=== PATIENT | female | born 1985 | race Asian ===

== ENCOUNTER 2016-10-22 03:54 | Inpatient (IN) | payer BC, OTHER ==
[2016-10-22] MEDS ORDERED: EPSOM SALT 454 GM TP PRN (04:30)
[2016-10-22] MEDS ORDERED: LIDOCAINE 1% 30 ML SDV SC PRN (04:30)
[2016-10-22] MEDS ORDERED: OXYTOCIN/RINGERS LACTATE 1,000 ML IV PRN (04:30)
[2016-10-22] MEDS ORDERED: TERBUTALINE SULFATE 1 MG/ML VIAL IV PRN (04:30)
[2016-10-22] MEDS ORDERED: LR 1,000 ML IV PRN (04:30)
[2016-10-22] MEDS ORDERED: MINERAL OIL 60 ML OIL TP PRN (04:30)
[2016-10-22] MEDS ORDERED: LIDOCAINE 1% 30 ML SDV ONE (04:46)
[2016-10-22] MEDS ORDERED: AMMONIA AROMATIC 1 EACH AMP IH ONE (04:46)
[2016-10-22] MEDS ORDERED: TERBUTALINE SULFATE 1 MG/ML VIAL ONE (04:46)
[2016-10-22] MEDS ORDERED: MISOPROSTOL 200 MCG TAB ONE (04:47)
[2016-10-22] MEDS ORDERED: OXYTOCIN 10 UNIT/ML VIAL ONE (04:47)
[2016-10-22 05:18] LABS: % IMMATURE GRANULYOCYTES 0.6 % (0.0-1.1); ABSOLUTE IMMATURE GRANULOCYTES 0.09 10^3/uL (0.00-0.10); ADD DIFF? NO; ADD MORPH? NO; ADD SCAN? NO; ATYPICAL LYMPHOCYTE FLAG 0 (0-99); FRAGMENT RBC FLAG 0 (0-99); HEMATOCRIT 43.1 % (38.0-47.0); HEMOGLOBIN 15.1 g/dL (12.6-16.3); LEFT SHIFT FLG 0 (0-99); LIPEMIA HEMOLYSIS FLAG 90 (0-99); MEAN CELL HEMOGLOBIN 31.5 pg (27.9-34.1); MEAN CELL VOLUME 89.8 fL (81.5-99.8); MEAN PLATELET VOLUME 9.5 fL (8.7-11.7); PLATELET CLUMPS FLAG 0 (0-99); PLATELET COUNT 264 10^3/uL (150-400); RED CELL DISTRIBUTION WIDTH 12.6 % (11.5-15.2)
[2016-10-22] MEDS ORDERED: LR 1,000 ML IV ONE (05:30)
--- NOTE | 2016-10-22 06:30 | GHP ---
[f rep st] HISTORY AND PHYSICAL DATE OF ADMISSION: 10/22/2016 HISTORY OF PRESENT ILLNESS: Patient is a 31-year-old, 1, para 0 at 40 3 /7 wks with a LMP of 01/07/2106 with an HECTOR of 10/19/2016 by 13 week ultrasound. The patient presents to Labor and Delivery from home with a fiberglass container winding operator named Cici. Cici was Doppler-ing and was concerned that the baseline was low at 110 bpm and that there were no accelerations heard. There were no specific decelerations noted. So she brought the patient into Labor and Delivery for monitoring and for delivery. The patient was found to have spontaneously ruptured at 23:30 on October 19, clear fluid noted throughout. Labor onset was greater than 24-hours after rupture of membranes. She took an ounce of Hickory Oil last night at about 9 p.m., and started paige at 0200 this morning. Cici, the fiberglass container winding operator, had checked the patient and she was found to be 6-7 cm dilated, in active labor. The patient had GBS in her urine early in and did get multiple doses of antibiotics, ampicillin. She is afebrile. Of note, the patient did transfer care from [place] in her 3rd trimester to the fiberglass container winding operator, Cici and presented at about 25 weeks. PAST OB HISTORY: Patient is primiparous, with last menstrual period 2015. Menstrual cycles are regular anywhere from 30-35 days, she bleeds x7 days. Age of menarche 11. The patient does not have a history of abnormal Pap smears. No history of STD exposure. PAST MEDICAL HISTORY: Unremarkable. PAST SURGICAL HISTORY: Unremarkable. FAMILY HISTORY: Father has type 2 diabetes. Paternal grandfather from liver disease. MEDICATIONS: vitamins, krill oil, and probiotics. ALLERGIES: No known drug allergies. LAB TESTS: The patient is O positive. Antibody screen negative, H and H, 39.4 , 13.6 initially, and then 3rd trimester 42.6, 13.8. TSH normal at 0.654. Platelets 270. Hemoglobin A1c 5.1. She declined the rest of her initial labs. GENERAL: She is a well-nourished, well-developed 31-year-old female. Alert and oriented, in moderate distress secondary to painful contractions. ABDOMEN: Soft, gravid and nontender. PELVIC EXAM: 7-8 cm dilated and 90% effaced, +1 station. heart tones are category 1 with a baseline 110 beats per minute , positive accels, moderate variability, there are at times minimal variability , no decels. ASSESSMENT: The patient is a 31-year-old, 1, para 0 at 40 and 3/7 weeks by 13-week ultrasound, who presents with premature ROM and onset of labor 24-hours after with GBS in the urine, adequately treated with ampicillin. Patient presents in active labor with concerns by the fiberglass container winding operator, Cici, of minimal variability and low baseline. PLAN: 1. Admit to Labor and Delivery for expectant management. 2. We will get initial labs, patient consented. 3. Will place an IV and run bolus of fluids. /[id number]/MODL MTDD
[2016-10-22] MEDS: AMPICILLIN SODIUM 1 GM in NS 100 ML IV SCH ×5 (07:02→23:22)
--- NOTE | 2016-10-22 07:43 | OBPROG ---
OBG Progress Note Assessment/Plan: Assessment: 31 y/o @ 40 3/7 wks with prolonged PROM in active labor Plan: Will start pushing FHTs - Cat I; baseline of 110 bpm Anticipate Pt afebrile 10/22/16 07:41 Subjective: Pt is screaming with her ctx's Objective: 10/22/16 04:46 Patient ABO/Rh O POSITIVE 10/22/16 04:46 - SVE Dilation (cm): 10 Effacement (%): 100 Station: +2 Current Contraction Pattern: Regular FHR (bpm): 110 FHR Pattern Variability: Moderate FHR Category: 1 Membranes: SROM Amniotic Fluid Color: Clear ICD10 Worksheet Patient Problems: Problems Problem Status Diagnosed PROM with onset of labor more than 24 hours following rupture Acute
[2016-10-22] MEDS ORDERED: OXYTOCIN/RINGERS LACTATE 30 UNIT/500 ML BAG IV ONE (09:37)
--- NOTE | 2016-10-22 10:19 | OBPROC ---
- Labor and Delivery Onset of Contractions Date: 10/22/16 Onset of Contractions Time: 02:00 Onset of Contractions Type: Spontaneous Rupture of Membranes Date: 10/19/16 Rupture of Membranes Time: 23:30 Rupture of Membranes Type: Spontaneous Amniotic Fluid Color: Clear Dilation Complete Time: 07:00 Delivery Type: Spontaneous Placenta Delivery Date: 10/22/16 Placenta Delivery Time: 09:55 Episiotomy/Laceration: Midline (No extensions) Repair: 3-0, Vicryl EBL: [id number] Complications: None - Medications Anesthesia: Local (Specify) (1% Plain Lidocaine for episiotomy repair) - Info Infant A Delivery Date: 10/22/16 Delivery Time: 09:38 Sex of Infant: Female Score (1 Min): 8 Score (5 Min): 9
[2016-10-22] MEDS ORDERED: HYDROCORTISONE 0.5% CREAM TP PRN (10:20)
[2016-10-22] MEDS ORDERED: HYDROCODONE/APAP 5/325 TAB PO PRN (10:20)
[2016-10-22] MEDS ORDERED: SIMETHICONE 80 MG TAB CHEW PO PRN (10:20)
[2016-10-22] MEDS: IBUPROFEN 600 MG TAB PO PRN (10:33)
[2016-10-22] MEDS: DOCUSATE SODIUM 100 MG CAP PO PRN (20:23)
[2016-10-23] MEDS: AMPICILLIN SODIUM 1 GM in NS 100 ML IV SCH ×2 (02:45→06:47)
[2016-10-23] MEDS: DOCUSATE SODIUM 100 MG CAP PO PRN (08:29)
[2016-10-23] MEDS: IBUPROFEN 600 MG TAB PO PRN (08:29)
[2016-10-23 10:07] VITALS: BP 109/64; PULSE 72; RESP 16; TEMP 97.2
--- NOTE | 2016-10-23 10:37 | OBPROG ---
OBG Progress Note Assessment/Plan: Assessment: s/p PPD # 1 - pt is stable Plan: Continue routine pp care Plan for d/ home today Instructions reviewed No Rx Pelvic rest Cont PNV Pt is to f/u with PCP in 6 weeks for pp visit 10/23/16 10:37 Subjective: Pt seen and examined. Doing well with no complaints. Minimal cramping, moderate lochia. without difficulty. Wants to go home today. Objective: 10/22/16 04:46 Patient ABO/Rh O POSITIVE 10/22/16 04:46 Temp Pulse Resp BP Pulse Ox 36.2 C 72 16 109/64 10/23/16 09:00 10/23/16 09:00 10/23/16 09:00 10/23/16 09:00 Uterine Position/Fundal Height: Umbilicus -2 Uterine Tone: Firm - Physical Exam General Appearance: WD/WN, alert, no apparent distress Respiratory: lungs clear, normal breath sounds Cardiac/Chest: regular rate, rhythm Abdomen: normal bowel sounds, non-tender, soft, flatus (+) Genitourinary: episiotomy (midline, intact), lochia (moderate) Extremities: normal inspection Neuro/Psych: alert, normal mood/affect, oriented x 3 ICD10 Worksheet Patient Problems: Problems Problem Status Diagnosed PROM with onset of labor more than 24 hours following rupture Acute (spontaneous vaginal delivery) Acute
== END 2016-10-23 14:26 | disposition home or self-care (01) | DRG 775 ==
LOC: FLD 03:54 → FOB 12:26
PROVIDERS: ADMIT Obstetrics & Gynecology; ATTEND Obstetrics & Gynecology
PROC: 10E0XZZ Delivery of Products of Conception, External Approach (ICD-10-PCS; principal; 2016-10-22)
DX: O42.113 Preterm premature rupture of membranes, onset of labor more than 24 hours following rupture, third trimester (principal); Z37.0 Single live birth; Z3A.40 40 weeks gestation of pregnancy; O99.824 Streptococcus B carrier state complicating childbirth
CPT/HCPCS: G0463; J0290; J2590; J3105